=== PATIENT | male | born 1945 | race Caucasian/White ===

== ENCOUNTER 2018-09-09 20:28 | Observation (INO) | payer MEDICARE ==
[2018-09-09 22:40] LABS: Troponin I 0.014 ng/mL (< 0.028)
[2018-09-09 23:07] VITALS: BMI 35.4
[2018-09-10] MEDS ORDERED: Carvedilol 25 MG TAB PO SCH ×2 (00:15→09:00)
[2018-09-10] MEDS ORDERED: Simvastatin 40 MG TAB PO SCH ×2 (00:15→21:00)
[2018-09-10 01:48] LABS: Troponin I Less than 0.010 ng/mL (< 0.028)
[2018-09-10] MEDS ORDERED: Ondansetron PF 4 MG/2 ML Vial IVP PRN (05:08)
[2018-09-10] MEDS ORDERED: Ondansetron ODT 4 MG TAB PO PRN (05:08)
[2018-09-10] MEDS ORDERED: Acetaminophen 325 MG TAB PO PRN (05:08)
[2018-09-10 05:59] LABS: Troponin I 0.013 ng/mL (< 0.028)
[2018-09-10] MEDS ORDERED: HumaLOG 300 UNITS/3 ML VIAL SC PRN (06:15)
[2018-09-10] MEDS ORDERED: Dextrose 5% in Water 1,000 ML IV PRN (06:15)
[2018-09-10] MEDS ORDERED: Dextrose 50% Abboject 50 ML SYRINGE SLOW IVP PRN (06:15)
[2018-09-10] MEDS ORDERED: Prevnar 13-Val Conj/PF 0.5 ML SYRINGE IM ONE (09:00)
[2018-09-10] MEDS ORDERED: Losartan/Hydrochlorothiazide 100 mg/25 mg Tablet PO SCH (09:00)
[2018-09-10] MEDS ORDERED: Enoxaparin Sodium 40 MG/0.4 ML SYRINGE SC SCH (09:00)
--- NOTE | 2018-09-10 09:42 | HP ---
PRIMARY CARE DOCTOR: Sukumar Pepper MD CODE STATUS: Full code. TIME OF EVALUATION: 5:30 a.m. CHIEF COMPLAINT: Chest tightness. HISTORY OF PRESENT ILLNESS: A 73-year-old male patient with past medical history of coronary artery disease, status post CABG 12 years ago, who came to the hospital after having chest pain in the middle of the chest. No specific radiation. The patient reported the chest pain to be 4/10, pressure-like, He cannot associate any event to the symptoms. No alleviating factors. REVIEW OF SYSTEMS: CONSTITUTIONAL: No fever, chills, or generalized weakness. RESPIRATORY: No cough, sputum production, or shortness of breath. CARDIOVASCULAR: The patient has chest pain. No palpitation. GASTROINTESTINAL: No nausea. No vomiting, diarrhea, or abdominal pain. [employer]ILDING: No dizziness, headache, or feeling lightheaded. GENITOURINARY: No burning on urination. EXTREMITIES: No leg swelling. All other systems were reviewed and negative except for the findings mentioned above. PAST MEDICAL HISTORY: The patient has gout, coronary artery disease, diabetes type 2, GERD, BPH, hyperlipidemia, high cholesterol, and hypertension. PAST SURGICAL HISTORY: Carpal tunnel surgery on the right hand, coronary artery bypass graft surgery x3 vessels, bilateral hernia repair. PSYCHIATRIC HISTORY: Anxiety. FAMILY HISTORY: Reviewed and no contributory to current presentation. SOCIAL HISTORY: No alcohol. No drugs. No smoking history. KNOWN ALLERGIES: Iodine. REPORTED MEDICATIONS: 1. Alprazolam. 2. Aspirin. 3. Carvedilol. 4. Lasix. 5. Metformin. 6. Potassium chloride. 7. Simvastatin. 8. Tamsulosin. 9. Colcrys. 10. Glimepiride. 11. Losartan/hydrochlorothiazide. 12. Meloxicam. PHYSICAL EXAMINATION: VITAL SIGNS: On presentation; blood pressure 172/95 with heart rate 65, respiratory rate was 18, temperature 98.3, and oxygen saturation 97%. GENERAL APPEARANCE: The patient is alert, oriented, not in any acute distress. HEENT: Eyes, normal conjunctivae. Moist oral mucosa. Anicteric. NECK: No JVD. RESPIRATORY: Bilateral air entry. No rales. No wheezes. Symmetric expansion. CARDIOVASCULAR: Normal rate. Regular rhythm. No murmurs. No gallop. No edema. ABDOMEN: Soft. Normal bowel sounds. MUSCULOSKELETAL: Baseline range of motion and strength. No tenderness. SKIN : Warm and intact. No pallor. No rash. No redness. Peripheral pulses are present. Capillary refill seems to be intact. NEUROLOGIC: No evidence of any new focal weakness. Baseline speech. Cranial nerves seem to be intact. PSYCHIATRIC: The patient is in good mood. No anxiety. Optimal judgment. DIAGNOSTIC DATA: EKG was reviewed. The patient has a normal sinus rhythm at the rate of 68. No specific acute changes. Chest x-ray was done. The patient has a right posteromedial basilar opacity with nodular density in the right infrahilar level, possible right lower lobe subsegmental atelectasis, possible right hilar mass. Please consider CT chest for better characterization. Chest CT was done, unremarkable. Noncontrast enhanced CT of the chest, extensive coronary artery calcification was seen. LABORATORY DATA: Labs were reviewed. The patient has white count of 8.2, hemoglobin 14.7, MCV 92, and platelet count 170. Chemistry; sodium 139, potassium 4.8, chloride 108, carbon dioxide 22, anion gap 13, BUN 24, and creatinine 1.17. GFR 61. Glucose 108. LFTs were negative. Beta-natriuretic peptide 155, globulin 2.2. Urine was not done. ASSESSMENT AND PLAN: The patient will be placed in the hospital with following medical problems: 1. Chest pain, rule out acute coronary syndrome. The patient has strong cardiac history with cardiac bypass 12 years ago. We will proceed with a stress test and consult Cardiology if needed. By the time of my examination, the symptoms have gone. The patient had some mildly elevated troponin. 2. History of gastroesophageal reflux disease. Reconcile home medications. 3. Reported history of diabetes, this is chronic, controlled, reconcile home medications. 4. Deep venous thrombosis prophylaxis. 5. History of hypercholesterolemia. Low-cholesterol diet is advised. Reconcile home medications. Job ID: [id number] [facility]
--- NOTE | 2018-09-10 11:09 | NM ---
EXAM: CARDIAC SPECT HISTORY: Chest pain, coronary artery disease, status post CABG, diabetes, hypertension, dyslipidemia TECHNIQUE: A myocardial perfusion scan was performed using the single isotope 1 day protocol with gyoo hnetium 99m sestamibi. [10 mCi] was injected intravenously for the rest exam followed by 30 mCi for the stress study. Pharmacologic stress with adenosine was monitored and interpreted by Joe Pearce nurse practitioner FINDINGS: There is a fixed defect in the anteroseptal wall. No reversible defects are identified. Gated SPECT LVEF: 44% Wall motion exam: Anteroseptal hypokinesis. IMPRESSION: 1. No evidence of reversible ischemia. 2. Anteroseptal wall scar.
--- NOTE | 2018-09-10 15:29 | PRG ---
DATE OF SERVICE: 09/10/2018 SUBJECTIVE: The patient is seen and examined at bedside. He does not have much complaints to offer. His peripheral edema on both lower extremities improved significantly. OBJECTIVE: VITAL SIGNS: Blood pressure is 154/76, temperature is 97.7, pulse is 68, respirations 20, and O2 saturation 96% on room air. HEENT: Head is atraumatic and normocephalic. Eyes are PERRLA. Sclerae are nonicteric. Oral mucosa is moist. NECK: Supple. LUNGS: Clear. HEART: S1 and S2 normal. No S3. No S4. ABDOMEN: Soft, obese, nontender, nondistended. EXTREMITIES: 1+ peripheral edema similar bilaterally. NEUROLOGICAL: He is alert and oriented x4. There is no any motor or sensory deficit. Cranial nerves are intact. LABORATORY DATA: Labs showed glycemia is ranging from 110 to 179, triglycerides 140, cholesterol 110, LDL 45, HDL 37. DIAGNOSTIC DATA: Nuclear medicine stress test; LVEF estimated at 44%, anteroseptal hypokinesia, there is no evidence of reversible ischemia, and anteroseptal wall scar. IMPRESSION: 1. Chest pain. Acute coronary syndrome was ruled out, and there is no any acute reversible ischemia on his nuclear medicine stress test, but left ventricular ejection fraction is estimated at 44%, and he did not see any extension service advisor since the time when he had bypass in 2005 at [facility] in [place], so we will obtain consultation with Dr. Peace, who is fire control officer today. 2. Coronary artery disease. 3. Gout. 4. Diabetes mellitus type 2. 5. Benign prostatic hyperplasia. 6. Hyperlipidemia. 7. Hypertension. PLAN: As mentioned above. Cardiology consultation for further management of his cardiac issue, and we will continue his DVT prophylaxis and Accu-Cheks a.c. and at bedtime. Job ID: [id number]
[2018-09-10 15:50] VITALS: BP 142/87; TEMP 97.9
--- NOTE | 2018-09-11 06:42 | DIS ---
DATE OF ADMISSION: 09/09/2018 DATE OF DISCHARGE: 09/10/2018 FINAL DIAGNOSES: 1. Chest pain. Acute coronary syndrome was ruled out with EKG, stress test, and cardiac enzymes. 2. Diabetes mellitus, type 2. 3. Hypertension. 4. Cardiomyopathy with left ventricular ejection fraction of 44% per nuclear stress test study. 5. BPH. 6. Gastroesophageal reflux disease. 7. Hyperlipidemia. 8. Hypertension. 9. Coronary artery disease. HOSPITAL COURSE: The patient is a 73-year-old male, who was admitted to the hospital with complaints of chest tightness. He has a long history of coronary artery disease, status post CABG approximately 12 years ago. The pain he described was located in the middle of the chest, no radiation, rated at 4/10, pressure-like discomfort. The patient was seen in the emergency room, had first set of troponin I done and it was negative. He had further evaluation with the chest x-ray, which showed possible right posteromedial basilar opacity with nodular density in the right infrahilar level, but this was followed with CT of the chest for better characterization, which did not show any problems mentioned on the chest x-ray report. This was noncontrast-enhanced CT of the chest, which showed extensive coronary artery calcification. His white count at the time of admission was 8.2, hemoglobin 14.7, MCV was 92, and platelet count was 170. Creatinine was 1.17. Electrolytes were within normal limits. BNP was 155. The patient got admitted to the hospital for observation. He had additional two sets of troponin I, which came back negative. His electrocardiogram showed normal sinus rhythm with sinus arrhythmia with minimal voltage criteria for LVH. There was evidence of septal infarct with Q-wave in leads 3 and V1 and V2. The patient underwent nuclear medicine stress test, which did not show any reversible ischemia. There was anteroseptal hypokinesis. LVEF was estimated at 44%. The patient is doing well. He does not have more chest discomfort. PHYSICAL EXAMINATION: VITAL SIGNS: His blood pressure is 154/76, pulse is 68, temperature is 97.7, respirations 20, and O2 saturation is 96% on room air. LUNGS: Clear. HEART: S1 and S2, normal. ABDOMEN: Soft, nontender. EXTREMITIES: He has 1+ peripheral edema similar bilaterally on both lower extremities. NEUROLOGICAL: Intact. DISPOSITION: He is discharged home in good condition with recommendation to stay on 1999 calories ADA diet. ACTIVITIES: As tolerated. HOME MEDICATIONS: 1. Carvedilol 25 mg twice a day. 2. Zocor 40 mg at bedtime. 3. Glimepiride 4 mg twice a day. 4. Metformin 1000 mg twice a day. 5. Losartan/hydrochlorothiazide 100/25 mg one tablet a day. 6. 81 mg of aspirin every single day. FOLLOWUP: He is going to follow up with Dr. Peace, water system operator, whom the case was discussed with. She recommends to see her in the office at the first available appointment and he is in agreement. TIME SPENT: Discharge time is less than 30 minutes. Job ID: [id number]
== END 2018-09-10 16:27 | disposition home or self-care (01) ==
LOC: ERS 20:28 → 2SW 22:30
PROVIDERS: ADMIT Hospitalist; ATTEND Hospitalist
DX: R07.89 Other chest pain (principal); I25.10 Atherosclerotic heart disease of native coronary artery without angina pectoris; M10.9 Gout, unspecified; E11.9 Type 2 diabetes mellitus without complications; K21.9 Gastro-esophageal reflux disease without esophagitis; N40.0 Benign prostatic hyperplasia without lower urinary tract symptoms; E78.5 Hyperlipidemia, unspecified; E78.00 Pure hypercholesterolemia, unspecified; I10 Essential (primary) hypertension; F41.9 Anxiety disorder, unspecified; I42.9 Cardiomyopathy, unspecified; Z79.84 Long term (current) use of oral hypoglycemic drugs; Z79.82 Long term (current) use of aspirin; Z79.899 Other long term (current) drug therapy; Z91.048 Other nonmedicinal substance allergy status; Z91.041 Radiographic dye allergy status; Z95.5 Presence of coronary angioplasty implant and graft; Z95.1 Presence of aortocoronary bypass graft
CPT/HCPCS: 78452; 80061; 82962 ×2; 84484 ×3; 90670; 93017; 96372; 99285; A9500; G0009; G0378 ×2; 36415; 36416; 90471; J0153; J1650

== ENCOUNTER 2023-02-23 00:07 | Observation (INO) | payer MEDICARE ==
[2023-02-23] MEDS ORDERED: Acetaminophen 325 MG TAB PO PRN (01:37)
[2023-02-23] MEDS ORDERED: Ondansetron ODT 4 MG TAB PO PRN (01:37)
[2023-02-23 02:11] VITALS: BMI 27.6
[2023-02-23] MEDS ORDERED: Dextrose 50% Abboject 50 ML SYRINGE SLOW IVP PRN (08:18)
[2023-02-23] MEDS ORDERED: Dextrose 5% in Water 1,000 ML IV PRN (08:18)
[2023-02-23] MEDS ORDERED: Glucagon 1 MG/ML KIT IM PRN (08:18)
[2023-02-23] MEDS ORDERED: HumaLOG 300 UNITS/3 ML VIAL SC PRN (08:18)
[2023-02-23] MEDS: Carbidopa/Levodopa 10-100 mg Tablet PO SCH ×3 (08:19→20:30)
[2023-02-23] MEDS: Carvedilol 25 MG TAB PO SCH ×2 (08:19→20:30)
[2023-02-23] MEDS: Famotidine 20 MG TAB PO SCH ×2 (08:19→20:30)
[2023-02-23] MEDS: metFORMIN 500 MG TAB PO SCH ×2 (08:19→18:14)
[2023-02-23] MEDS: Furosemide 40 MG TAB PO SCH ×2 (08:19→20:30)
[2023-02-23] MEDS: Aspirin Chewable 81 MG TAB PO SCH (08:20)
[2023-02-23] MEDS: Losartan 25 MG TAB PO SCH ×2 (08:20→20:30)
[2023-02-23 08:21] LABS: #Eosinphils 0.1 thou/uL (0.0-0.7); #Monocytes 0.5 thou/uL (0.11-0.59); #Neutrophils 4.3 thou/uL (1.40-6.50); %Basophils 0.4 % (0.0-1.0); %Eosinophils 1.2 % (0.0-10.0); %Lymphocytes 14.5 % (21.0-51.0); %Monocytes 8.1 % (0.0-10.0); %Neutrophils 75.6 % (42.0-75.0); Hematocrit 36.8 % (42.0-52.0); Mean Corpuscular HGB CONC 32.6 g/dL (32.0-36.0); Mean Corpuscular Hemoglobin 30.1 pg (27.0-31.0); Mean Corpuscular Volume 92.2 fl (78.0-98.0); Mean Platelet Volume 10.2 fL (7.4-10.4); Platelet Count 182 10x3/uL (130-400); RBC Distribution Width 13.5 % (11.5-14.5); Red Blood Cell (RBC) Count 3.99 mill/uL (4.70-6.10); White Blood Cell (WBC) Count 5.7 10x3/uL (4.8-10.8)
[2023-02-23 08:25] LABS: INR-International Normal Ratio 2.9; Prothrombin Time 31.3 sec (12.0-14.7)
[2023-02-23 08:30] LABS: Hemoglobin A1c 6.2 % (4.0-6.0)
[2023-02-23] MEDS ORDERED: Hydrochlorothiazide 25 MG TAB PO SCH (09:00)
[2023-02-23] MEDS ORDERED: Losartan 25 MG TAB PO SCH (09:00)
[2023-02-23 09:21] LABS: ALT (SGPT) 7 U/L (8-55); AST (SGOT) 11 U/L (5-34); Albumin 4.1 g/dL (3.4-4.8); Alkaline Phosphatase 66 U/L (40-110); Anion Gap 11 mmol/L (10-20); BUN (Urea Nitrogen) 16 mg/dL (8.4-25.7); Bilirubin, Total 0.6 mg/dL (0.2-1.2); Calc. Creatinine Clearance 84 mL/min (70-130); Calcium 9.1 mg/dL (7.8-10.44); Carbon Dioxide 27 mmol/L (23-31); Chloride 104 mmol/L (98-107); Estimated GFR 86; Glucose 93 mg/dL (83-110); Potassium 3.9 mmol/L (3.5-5.1); Protein, Total 6.1 g/dL (5.8-8.1); Sodium 138 mmol/L (136-145)
[2023-02-23 09:22] LABS: Cardiac Risk 1.9 (Less than 4.5)
[2023-02-23] MEDS ORDERED: WARFARIN PO PRN (10:51)
[2023-02-23] MEDS ORDERED: Warfarin Sodium 5 MG TAB PO SCH (17:00)
[2023-02-23] MEDS ORDERED: Tamsulosin HCl 0.4 MG CAP PO SCH (21:00)
[2023-02-23] MEDS ORDERED: ALPRAZolam 0.25 MG TAB PO SCH (21:30)
[2023-02-24 05:33] LABS: INR-International Normal Ratio 2.6
[2023-02-24 08:01] VITALS: TEMP 97.6
[2023-02-24] MEDS: metFORMIN 500 MG TAB PO SCH (08:18)
[2023-02-24] MEDS: Furosemide 40 MG TAB PO SCH (08:19)
[2023-02-24] MEDS: Famotidine 20 MG TAB PO SCH (08:19)
[2023-02-24] MEDS: Carvedilol 25 MG TAB PO SCH (08:19)
[2023-02-24] MEDS: Aspirin Chewable 81 MG TAB PO SCH (08:19)
[2023-02-24] MEDS: Carbidopa/Levodopa 10-100 mg Tablet PO SCH ×2 (08:19→14:19)
[2023-02-24] MEDS: Losartan 25 MG TAB PO SCH (08:19)
[2023-02-24 11:24] VITALS: BP 101/57
[2023-02-24] MEDS ORDERED: Warfarin Sodium 2.5 MG TAB PO SCH (17:00)
[2023-02-25] MEDS ORDERED: Rosuvastatin 20 MG TAB PO SCH (09:00)
== END 2023-02-24 15:30 | disposition home health service (06) ==
LOC: 2SE 01:32
PROVIDERS: ADMIT Student in an Organized Health Care Education/Training Program; ATTEND Family Medicine
DX: R41.82 Altered mental status, unspecified (principal); G20.C Parkinsonism, unspecified; L89.159 Pressure ulcer of sacral region, unspecified stage; I08.8 Other rheumatic multiple valve diseases; I10 Essential (primary) hypertension; E11.9 Type 2 diabetes mellitus without complications; K21.9 Gastro-esophageal reflux disease without esophagitis; Z91.041 Radiographic dye allergy status; Z91.048 Other nonmedicinal substance allergy status; Z79.84 Long term (current) use of oral hypoglycemic drugs; Z79.899 Other long term (current) drug therapy; Z79.01 Long term (current) use of anticoagulants; Z95.1 Presence of aortocoronary bypass graft; Z96.653 Presence of artificial knee joint, bilateral
CPT/HCPCS: 70551; 80053; 80061; 82607; 82962 ×2; 83036; 84425; 85025; 85610 ×2; 93306; 93880; 97116; 97139 ×2; 97530; G0378 ×2; 36415; 36416